=== PATIENT | male | born 1995 | race Caucasian/White ===

== ENCOUNTER 2016-07-17 16:54 | Emergency (ER) | payer OTHER ==
[~2016-07-17] VITALS: Ht 175.3 cm; Wt 77.1 kg
--- OUTSIDE RECORDS SUMMARY | 2016-07-17 17:00 | XMS REPORT | Continuity of Care Document ---
Author Author [facility] Organization [facility] Address Unknown Phone Unavailable Allergies Medications Problems Date Dx Coded Attending Type Code Diagnosis Diagnosed By 10/07/2015 SHANKAR GARIBAY Z51.81 Encounter for therapeutic drug level monitoring Procedures Code Description Performed By Performed On CBC CBC WITH DIFF 10/06 CMETPP COMPREHENSIVE METABOLIC PANEL 10/07/2015 Results Test Result Range COMPREHENSIVE METABOLIC PANEL - 09/27/14 10:47 POTASSIUM 4.4 mmol/L 3.5-5.1 CALCIUM 9.8 mg/dL 8.6-10.6 GLUCOSE 73 mg/dL 70-115 BUN 14 mg/dL 8-22 CREATININE 0.9 mg/dL 0.7-1.3 SODIUM 141 mmol/L 136-145 CHLORIDE 107 mmol/L 98-110 CO2 28 mmol/L 22-29 GFR ESTIMATED NOT AFR/AM >60 GFR ESTIMATED IF AFR/AM >60 ALT-SGPT 40 U/L 0-55 AST-SGOT 23 U/L 5-34 TOTAL PROTEIN,SERUM 6.6 g/dL 6-8.3 ALBUMIN 4.5 g/dL 3.6-5.3 ALKALINE PHOSPHATASE 56 U/L 40-150 TOTAL BILIRUBIN 0.9 mg/dL 0.2-1.2 ANION GAP 6 5-15 GLOBULIN, CALCULATED 2.1 g/dL A/G RATIO 2.1 ratio 1-1.8 CBC WO DIFF - 09/27/14 10:47 WBC 5.8 10*3/uL 4.3-10.8 RBC 4.98 10*6/uL 4.70-6.10 HGB 15.0 g/dL 14.0-18.0 HCT 45.6 % 42-52 MCV 92 fL 81-99 MCH 30 pg 26-34 MCHC 33 g/dL 31-37 PLATELET COUNT 193 10*3/uL 150-400 RDWCV 12.6 % 11.5-14.5 CBC WO DIFF - 01/14/15 10:25 WBC 4.8 10*3/uL 4.3-10.8 RBC 4.79 10*6/uL 4.70-6.10 HGB 15.3 g/dL 14.0-18.0 HCT 44.8 % 42-52 MCV 94 fL 81-99 MCH 32 pg 26-34 MCHC 34 g/dL 31-37 PLATELET COUNT 189 10*3/uL 150-400 RDWCV 12.6 % 11.5-14.5 COMPREHENSIVE METABOLIC PANEL - 01/14/15 10:25 POTASSIUM 4.6 mmol/L 3.5-5.1 CALCIUM 9.7 mg/dL 8.6-10.6 GLUCOSE 75 mg/dL 70-115 BUN 14 mg/dL 8-22 CREATININE 1.1 mg/dL 0.7-1.3 SODIUM 141 mmol/L 136-145 CHLORIDE 106 mmol/L 98-110 CO2 32 mmol/L 22-29 GFR ESTIMATED NOT AFR/AM >60 GFR ESTIMATED IF AFR/AM >60 ALT-SGPT 32 U/L 0-55 AST-SGOT 18 U/L 5-34 TOTAL PROTEIN,SERUM 6.2 g/dL 6-8.3 ALBUMIN 4.4 g/dL 3.6-5.3 ALKALINE PHOSPHATASE 46 U/L 40-150 TOTAL BILIRUBIN 1.0 mg/dL 0.2-1.2 ANION GAP 3 5-15 GLOBULIN, CALCULATED 1.8 g/dL A/G RATIO 2.4 ratio 1-1.8 LAMOTRIGINE LEVEL - 01/14/15 10:25 LAMOTRIGINE 1.2 ug/mL 2.5-15.0 Encounters ACCT No. Visit Date/Time Discharge Status Pt. Type Provider Facility Loc./Unit Complaint [id number] 06/28/2013 17:24:00 2013 19:06:00 [facility] Emergency
[2016-07-17] MEDS ORDERED: LACTATED RINGERS 1,000 ML IV ONE (18:42)
--- NOTE | 2016-07-17 18:48 | ED Abdominal Pain ---
General Chief Complaint: Abdominal/GI Problems Stated Complaint: R SIDE STOMACH PAIN Nursing Triage Note: c/o upper abd pain. Onset yesterday evening. Sepsis Screen: No Definite Risk Source of Information: Patient History of Present Illness Time Seen By Provider: 18:32 Initial Comments C/O RIGHT SIDED ABDOMINAL PAIN SINCE LAST PM PAIN COMES AND GOES AND IS SHARP AND SEVERE AT TIMES SINCE THIS AFTERNOON HAS NAUSEA WHEN PAIN IS SEVERE NO VOMITING NO DIARRHEA--HAD NORMAL BM TODAY. NO BLACK/BLOODY/TARRY STOOLS NO FEVER NO URINARY SYMPTOMS NOTHING WORSENS OR IMPROVES PAIN NO HISTORY OF SIMILAR LAST ATE AROUND NOON--SMALL AMOUNT OF [place] FOOD DRANK WATER 2 HOURS AGO [employer] STUDENT-JUST GRADUATED IN [employer]IL. HOME IS IN [place] Allergies and Home Medications Allergies Coded Allergies: No Known Drug Allergies (Unverified , 06/28/13) Home Medications Hyoscyamine Sulfate 0.125 Mg Tab.subl #10 1-2 TAB SL Q4H Prescribed by: FAY PADRON on 07/17/162106 Ondansetron 4 Mg Tab.rapdis #10 4 MG PO Q4H Prescribed by: FAY PADRON on 07/17/162106 Pantoprazole Sodium 40 Mg Tablet.dr #15 40 MG PO DAILY Prescribed by: FAY PADRON on 07/17/162106 Review of Systems Constitutional: no symptoms reported EENTM: No Symptoms Reported Respiratory: No Symptoms Reported Cardiovascular: No Symptoms Reported Gastrointestinal: See HPI Abdominal PainDenies Constipated, Denies Diarrhea, Nausea Poor AppetiteDenies Vomiting Genitourinary: No Symptoms Reported Musculoskeletal: no symptoms reported Skin: no symptoms reported Psychiatric/Neurological: No Symptoms Reported Endocrine: No Symptoms Reported Hematologic/Lymphatic: No Symptoms Reported Past Baahnrk-Pkoryt-Wzpeqm Hx Patient Social History Alcohol Use: Denies Use Recreational Drug Use: No Smoking Status: Never a Smoker Recent Foreign Travel: No Contact w/Someone Who Travel: No Recent Infectious Disease Expo: No Immunizations Up To Date Tetanus Booster (TDap): Unknown Surgeries HX Surgeries: Yes (NEUROFIBROMAS REMOVED) Respiratory Hx Respiratory Disorders: No Cardiovascular Hx Cardiac Disorders: No Neurological Hx Neurological Disorders: Yes (NEUROFIBROMATOSIS; WHITE MATTER DISEASE) Neurological Disorders: Seizure Disorder Genitourinary Hx Genitourinary Disorders: No Gastrointestinal Hx Gastrointestinal Disorders: No Musculoskeletal Hx Musculoskeletal Disorders: No Endocrine Hx Endocrine Disorders: No HEENT HX ENT Disorders: No Cancer Hx Cancer: No Psychosocial Hx Psychiatric Problems: No Integumentary HX Skin/Integumentary Disorder: Yes (NEUROFIBROMATOSIS) Blood Transfusions Hx Blood Disorders: No Physical Exam Vital Signs VS - Last 72 Hours, by Label 07/17/16 07/17/16 18:33 21:29 Temp 97.0 Pulse 90 86 Resp 16 14 B/P 122/70 Pulse Ox 98 O2 Delivery Room Air Capillary Refill : Less Than 3 Seconds General Appearance: WD/WN no apparent distress other (WALKS UPRIGHT AND MOVES WITHOUT DIFFICULTY) thin HEENT: PERRL/EOMI normal ENT inspection Neck: non-tender full range of motion supple normal inspection Respiratory: normal breath sounds no respiratory distress no accessory muscle use Cardiovascular: regular rate, rhythm no murmur Gastrointestinal: normal bowel sounds soft no organomegaly no pulsatile massNo distended, No guarding, No rebound, tenderness (DIFFUSE RIGHT SIDED TENDERNESS AND PERIUMBILICAL TENDERNESS)No hernia, No mass, other (NEGATIVE HEEL TAP. MILD PSOAS SIGN. SLIGHT PAIN WITH OBTURATOR'S. NEGATIVE ROVSING'S. MILD RIGHT FLANK TENDERNESS) Extremities: normal inspection Back: no vertebral tenderness CVA tenderness (R) Neurologic/Psychiatric: therapist occupational II-XII nml as tested no motor/sensory deficits alert normal mood/affect oriented x 3 Skin: normal color warm/dry other (MULTIPLE BVNP-VE-CAQA SPOTS AND NEUROFIBROMAS ) Progress/Results/Core Measures Results/Orders Lab Results Laboratory Tests Test 07/17/16 18:50 07/17/16 19:42 Range/Units Alanine Aminotransferase (ALT/SGPT) 28 0-55 U/L Albumin 4.5 3.2-4.5 G/DL Alkaline Phosphatase 46 40-136 U/L Amylase Level 38 25-125 U/L Anion Gap 9 5-14 MMOL/L Aspartate Amino Transf (AST/SGOT) 17 5-34 U/L BUN/Creatinine Ratio 18 Basophils # (Auto) 0.0 0.0-0.1 10^3/uL Basophils (%) (Auto) 0 0-10 % Blood Urea Nitrogen 17 7-18 MG/DL Calcium Level 8.9 8.5-10.1 MG/DL Carbon Dioxide Level 24 21-32 MMOL/L Chloride Level 108 H 98-107 MMOL/L Creatinine 0.95 0.60-1.30 MG/DL Eosinophils # (Auto) 0.1 0.0-0.3 10^3/uL Eosinophils (%) (Auto) 2 0-10 % Estimat Glomerular Filtration Rate > 60 Glucose Level 86 70-105 MG/DL Hematocrit 41 40-54 % Hemoglobin 14.4 13.3-17.7 G/DL Lipase 23 8-78 U/L Lymphocytes # (Auto) 1.8 1.0-4.0 X 10^3 Lymphocytes (%) (Auto) 35 12-44 % Mean Corpuscular Hemoglobin 31 25-34 PG Mean Corpuscular Hemoglobin Concent 35 32-36 G/DL Mean Corpuscular Volume 88 80-99 FL Mean Platelet Volume 10.8 H 7.4-10.4 FL Monocytes # (Auto) 0.4 0.0-1.0 X 10^3 Monocytes (%) (Auto) 8 0-12 % Neutrophils # (Auto) 2.8 1.8-7.8 X 10^3 Neutrophils (%) (Auto) 55 42-75 % Platelet Count 188 130-400 10^3/uL Potassium Level 3.9 3.6-5.0 MMOL/L Red Blood Count 4.66 4.35-5.85 10^6/uL Red Cell Distribution Width 12.4 10.0-14.5 % Sodium Level 141 135-145 MMOL/L Total Bilirubin 0.6 0.1-1.0 MG/DL Total Protein 6.1 L 6.4-8.2 G/DL White Blood Count 5.1 4.3-11.0 10^3/uL Urine Bacteria NONE /HPF Urine Bilirubin NEGATIVE NEGATIVE Urine Casts NONE /LPF Urine Clarity CLEAR Urine Color YELLOW Urine Crystals NONE /LPF Urine Culture Indicated NO Urine Glucose (UA) NEGATIVE NEGATIVE Urine Ketones NEGATIVE NEGATIVE Urine Leukocyte Esterase NEGATIVE NEGATIVE Urine Mucus NEGATIVE /LPF Urine Nitrite NEGATIVE NEGATIVE Urine Protein NEGATIVE NEGATIVE Urine RBC RARE /HPF Urine RBC (Auto) NEGATIVE NEGATIVE Urine Specific [place] 1.010 L 1.016-1.022 Urine Urobilinogen 1 NORMAL MG/DL Urine WBC NONE /HPF Urine pH 7 5-9 My Orders Orders-VITO,FAY K DO Saline Lock/Iv-Start (07/17/16 18:32) Amylase (07/17/16 18:32) Cbc With Automated Diff (07/17/16 18:32) Comprehensive Metabolic Panel (07/17/16 18:32) Lipase (07/17/16 18:32) Ua Culture If Indicated (07/17/16 18:32) Saline Lock/Iv-Start (07/17/16 18:42) Lactated Ringers (Lr 1000 Ml Iv Solution (07/17/16 18:42) Ct Abd/Pelv W (Appendicitis) (07/17/16 20:19) Iohexol Injection (Omnipaque 350 Mg/Ml 1 (07/17/16 20:30) Ns (Ivpb) (Sodium Chloride 0.9% Ivpb Bag (07/17/16 20:30) Rx-Hyoscyamine Tab (Rx-Levsin Sl) (07/17/16 21:04) Rx-Ondansetron Po (Rx-Zofran Po) (07/17/16 21:04) Pantoprazole Tablet (Protonix Tablet) (07/17/16 21:15) Medications Given in ED Current Medications Medications Dose Ordered Sig/Moi Route Start Time Stop Time Status Last Admin Dose Admin Iohexol 100 ml ONCE ONCE IV 07/17/16 20:30 07/17/16 20:31 DC 07/17/16 20:31 100 ML Lactated Ringer's 1,000 ml @ 0 mls/hr Q0M ONCE IV 07/17/16 18:42 07/17/16 18:43 DC 07/17/16 18:56 0 MLS/HR Pantoprazole Sodium 40 mg ONCE ONCE PO 07/17/16 21:15 07/17/16 21:16 DC 07/17/16 21:25 40 MG Sodium Chloride 100 ml ONCE ONCE IV 07/17/16 20:30 07/17/16 20:31 DC 07/17/16 20:31 100 ML Vital Signs/I&O Vital Sign - Last 12Hours 07/17/16 07/17/16 18:33 21:29 Temp 97.0 Pulse 90 86 Resp 16 14 B/P 122/70 Pulse Ox 98 O2 Delivery Room Air Blood Pressure Mean: 87 Progress Note : Progress Note NO PAIN OR OTHER SYMPTOMS DURING ER STAY Diagnostic Imaging Comments CT ABDOMEN/ PELVIS--GASTRITIS, OTHERWISE NO ACUTE PROCESS, PER RADIOLOGIST REPORT @ 2100 Reviewed: Reviewed by Me Departure Impression Impression: Primary Impression: ABDOMINAL PAIN Additional Impression: Gastritis Disposition: 01 HOME, SELF-CARE Condition: Improved Departure-Patient Inst. Referrals: NO,LOCAL PHYSICIAN (PCP/Family) Primary Care Physician Patient Instructions: Gastritis (DC), Acute Abdomen (Belly Pain), Adult (DC) Add. Discharge Instructions: CLEAR LIQUIDS--WATER, BROTH, JELLO, GATORADE TOMORROW IF YOU ARE BETTER, ADD BRATS DIET TO CLEAR LIQUIDS--BANANAS, RICE, APPLESAUCE, TOAST, SALTINE RETURN TO ER IF SYMPTOMS WORSEN All discharge instructions reviewed with patient and/or family. Voiced understanding. Scripts Pantoprazole Sodium (Protonix)40 Mg Tablet.dr40 Mg PO DAILY #15 TAB Prov:FAY PADRON DO 07/17/16 Ondansetron (Zofran Odt)4 Mg Tab.rapdis4 Mg PO Q4H Nausea/Vomiting #10 TAB Prov:FAY PADRON DO 07/17/16 Hyoscyamine Sulfate (Levsin-Sl)0.125 Mg Tab.subl1-2 Tab SL Q4H Abdominal Pain # 10 TAB Prov:FAY PADRON DO 07/17/16 FAY PADRON DO Jul 17, 2016 18:48
[2016-07-17 19:08] LABS: BASOPHILS % (AUTO) 0 % (0-10); EOSINOPHILS # (AUTO) 0.1 10^3/uL (0.0-0.3); EOSINOPHILS % (AUTO) 2 % (0-10); LYMPHOCYTES # (AUTO) 1.8 X 10^3 (1.0-4.0); LYMPHOCYTES % (AUTO) 35 % (12-44); MEAN CORPUSCULAR HEMOGLOBIN 31 PG (25-34); MEAN CORPUSCULAR HGB CONC 35 G/DL (32-36); MEAN CORPUSCULAR VOLUME 88 FL (80-99); MEAN PLATELET VOLUME 10.8 FL (7.4-10.4); MONOCYTES # (AUTO) 0.4 X 10^3 (0.0-1.0); MONOCYTES % (AUTO) 8 % (0-12); NEUTROPHILS # (AUTO) 2.8 X 10^3 (1.8-7.8); NEUTROPHILS % (AUTO) 55 % (42-75); PLATELET COUNT 188 10^3/uL (130-400); RED BLOOD COUNT 4.66 10^6/uL (4.35-5.85); RED CELL DISTRIBUTION WIDTH 12.4 % (10.0-14.5); WHITE BLOOD COUNT 5.1 10^3/uL (4.3-11.0)
[2016-07-17 19:31] LABS: ALANINE AMINOTRANSFERASE 28 U/L (0-55); ALBUMIN 4.5 G/DL (3.2-4.5); AMYLASE 38 U/L (25-125); ANION GAP 9 MMOL/L (5-14); ASPARTATE AMINO TRANSFERASE 17 U/L (5-34); BILIRUBIN,TOTAL 0.6 MG/DL (0.1-1.0); BLOOD UREA NITROGEN 17 MG/DL (7-18); BUN/CREATININE RATIO 18; CALCIUM 8.9 MG/DL (8.5-10.1); CARBON DIOXIDE 24 MMOL/L (21-32); CHLORIDE 108 MMOL/L (98-107); CREATININE SERUM 0.95 MG/DL (0.60-1.30); GFR ESTIMATED > 60; GLUCOSE 86 MG/DL (70-105); LIPASE 23 U/L (8-78); POTASSIUM 3.9 MMOL/L (3.6-5.0); SODIUM 141 MMOL/L (135-145); TOTAL PROTEIN 6.1 G/DL (6.4-8.2)
[2016-07-17 19:58] LABS: BILIRUBIN,URINE NEGATIVE (NEGATIVE); KETONES,URINE NEGATIVE (NEGATIVE); LEUKOCYTE ESTERASE ,URINE NEGATIVE (NEGATIVE); NITRITE,URINE NEGATIVE (NEGATIVE); PH,URINE 7 (5-9); PROTEIN,URINE NEGATIVE (NEGATIVE); UROBILINOGEN,URINE 1 MG/DL (NORMAL)
[2016-07-17] MEDS ORDERED: IOHEXOL 350 MG/ML 100 ML (OMNIPAQUE 350) VIAL IV ONE (20:30)
[2016-07-17] MEDS ORDERED: NS 100 ML (IVPB) BAG IV ONE (20:30)
--- NOTE | 2016-07-17 20:52 | Diagnostic Imaging Report ---
PROCEDURE: CT abdomen and pelvis with contrast, rule out appendicitis. TECHNIQUE: Multiple contiguous axial images were obtained through the abdomen and pelvis after the administration of intravenous contrast. INDICATION: 21-year-old male presents to the ER with the right lower quadrant and mid abdominal pain, nausea 12 hours Comparison: None. Findings: Lung bases are clear. Cardiac contour is normal. Liver shows uniform attenuation. Gallbladder is normal. Spleen and GE junction are normal. The stomach shows a mucosal thickening at the distal body and proximal antrum duodenal sweep are unremarkable pancreas shows sharp margins. Adrenals are normal. Kidneys appear normal in size composition contour. Is symmetrical perfusion and excretion of contrast. Both ureters are seen interventricular course. Is no evidence of hydronephrosis or hydroureter. Bilateral ureteral jets are seen. The filled bladder is normal. The nonopacified loops of small bowel are grossly normal. Few shotty benign-appearing mesenteric nodes are seen. No significant adenopathy or adenitis suggested. The appendix is unremarkable. Large bowel contains fecal material and gas. There is no free air, free fluid or adenopathy. Visualized vasculature shows normal caliber of the aorta, iliac and femoral arteries with normal origin of the visceral arteries. Bone windows show no overall gross abnormalities. Impression: 1. No evidence of cholecystitis, appendicitis or obstructive uropathy. No areas of peritoneal inflammation seen. 2. There is mucosal thickening of the gastric body and antrum suggesting an element of gastritis. This is a soft call, correlate clinically. Additional nonemergent findings as described above. Dictated by: Dictated on workstation # [id number]
[2016-07-17] MEDS ORDERED: RX-HYOSCYAMINE 0.125 MG SL (LEVSIN) PPK#6 SL STA (21:04)
[2016-07-17] MEDS ORDERED: RX-ONDANSETRON 4 MG ODT (ZOFRAN) PPK #4 PO STA (21:04)
[2016-07-17] MEDS ORDERED: HYOS0.1283 SL (21:07)
[2016-07-17] MEDS ORDERED: PANT40TA2 PO (21:07)
[2016-07-17] MEDS ORDERED: ONDA4TAB8 PO (21:07)
[2016-07-17] MEDS ORDERED: PANTOPRAZOLE 40 MG (PROTONIX) TAB PO ONE (21:15)
[2016-07-17 21:29] VITALS: BP 137/87
== END 2016-07-17 21:29 | disposition home or self-care (01) ==
LOC: EDUNIT# 16:54 → ER 16:56
DX: K29.70 Gastritis, unspecified, without bleeding (principal)
CPT/HCPCS: 36415; 74177; 80053; 81000; 82150; 83690; 85025; 96360